=== PATIENT | male | born 1995 | race Hispanic/Latino ===

== ENCOUNTER 2021-03-31 13:15 | Emergency (ER) | payer OTHER, SELFPAY ==
[2021-03-31 13:45] VITALS: BP 136/87; PULSE 79; RESP 22; TEMP 36.6; O2SAT 99; BMI 27.8
[2021-03-31 14:22] LABS: COVID19 -Nasal RAPID POSITIVE (Negative)
--- NOTE | 2021-03-31 15:18 | ED.URI ---
HPI - URI/Sore Throat General Chief Complaint: Upper Respiratory Symptoms Stated Complaint: Congestion, cough, headache Time Seen by Provider: 03/31/21 15:15 Source: patient Mode of arrival: Ambulatory Related Data Allergies Allergy/AdvReac Type Severity Reaction Status Date / Time No Known Drug Allergies Allergy Verified 03/31/21 13:45 Patient History Social History Smoking Status: Current every day smoker Smoking Status: Current every day smoker tobacco type: vaping alcohol intake frequency: a few times a month Substance Use Type: does not use Exam Initial Vital Signs Initial Vital Signs: Vital Signs Temperature 97.8 F 03/31/21 13:45 Pulse Rate 79 03/31/21 13:45 Respiratory Rate 22 03/31/21 13:45 Blood Pressure 136/87 03/31/21 13:45 Pulse Oximetry 99 03/31/21 13:45 Course Orders Ordered: ED Orders 03/31/21 14:03 COVID19 -Nasal swab/Pre-Proc Stat Vital Signs Vital signs: Vital Signs - 8 hr 03/31/21 13:45 Temperature 97.8 F Pulse Rate 79 Respiratory Rate 22 Blood Pressure 136/87 Pulse Oximetry 99 MDM - URI/Sore Throat Lab Data Labs: Lab Results 03/31/21 Range/Units 14:03 SARS-CoV-2 (PCR) Positive H (Negative) Discharge Plan Departure Patient Disposition: Home Clinical Impression: COVID-19 Instructions: DI for COVID-19 (Suspected or Confirmed ) Activity Restrictions/Additional Instructions: *You have been diagnosed with COVID-19, your COVID test was positive today. According to the new CDC guidelines, please quarantine for as long as you have symptoms or 5 days from the onset of symptoms whichever is longest. Please return to the emergency department if you have any worsening of your symptoms, shortness of breath, difficulty breathing, or respiratory distress. *What to do: *Please continue to take your regular medications as directed. [ ] New medication prescriptions sent to your pharmacy: [ ] [ ] New medication written as a paper prescription [ x] No new medications given *Please follow up with your primary care provider in 2-3 days, call for an appointment. Let them know you were seen in the Emergency Department and that we ask that you be seen in follow up. We will electronically transmit a record of today's note if your PCP is in our system *If you do not have a primary care provider please contact the [facility] Resource line at [phone]. They will ask some questions about your medical history and help get you set up with a doctor in the community. *Return to Emergency Department if you should have any new, worsening or concerning symptoms, such as [fever greater than 101F, chills, worsening pain, persistent vomiting or other bothersome symptoms]
--- NOTE | 2021-03-31 15:47 | ED_ITS ---
HPI - URI/Sore Throat <AMERICO Crowell - Last Filed: 03/31/21 15:54> General Chief Complaint: Upper Respiratory Symptoms Stated Complaint: Congestion, cough, headache Time Seen by Provider: 03/31/21 15:15 Source: patient Mode of arrival: Ambulatory History of Present Illness HPI Narrative: 25-year-old male presents to the emergency department after his tested positive for COVID on 03/20/2021 and he developed symptoms shortly afterwards and assumed he also had COVID-19. He is to go back to work tomorrow and came to the emergency department for COVID testing. Patient reports that for 3 days he has had a headache and sore throat but denies having a cough, shortness of breath, muscle aches, nausea, vomiting, or diarrhea. Patient is acting needed for COVID and has received his booster vaccination. Patient denies having any fever, wheezing, or difficulty breathing. Related Data Allergies Allergy/AdvReac Type Severity Reaction Status Date / Time No Known Drug Allergies Allergy Verified 03/31/21 13:45 Review of Systems <AMERICO Crowell - Last Filed: 03/31/21 15:54> Review of Systems Narrative: General: denies fever, chills Head/Neck: denies headache, neck pain, endorses sore throat Eyes: denies visual changes, eye pain Cardio: denies chest pain, palpitations Respiratory: denies shortness of breath, cough GI: denies abdominal pain, nausea, vomiting, or diarrhea : denies dysuria, hematuria MSK: denies joint pain, muscle weakness Skin: denies rash, itching Neuro: denies numbness, tingling, endorses mild headache Patient History <AMERICO Crowell - Last Filed: 03/31/21 15:54> Social History Smoking Status: Current every day smoker Smoking Status: Current every day smoker tobacco type: vaping alcohol intake frequency: a few times a month Substance Use Type: does not use Exam <AMERICO Crowell - Last Filed: 03/31/21 15:54> Narrative Exam Narrative: Independently reviewed vitals signs and nursing notes. General: Awake, alert, nontoxic, no cardiorespiratory distress Head/Neck: Atraumatic, neck full range of motion Eyes: EOMI, conjunctiva normal Nose: nares patent, no rhinorrhea Mouth/Throat: moist mucus membranes, posterior pharynx normal, no oral lesions Cardio: Regular rate and rhythm, no peripheral edema Respiratory: respirations unlabored without wheezing, stridor, or rales. No retractions. GI: Abdomen soft, nontender MSK: Moves all extremities, neurovascularly intact Skin: Normal capillary refill, no rash Neuro: Normal speech and cognition, normal gait Initial Vital Signs Initial Vital Signs: Vital Signs Temperature 97.8 F 03/31/21 13:45 Pulse Rate 79 03/31/21 13:45 Respiratory Rate 22 03/31/21 13:45 Blood Pressure 136/87 03/31/21 13:45 Pulse Oximetry 99 03/31/21 13:45 <Lisa Gan DO - Last Filed: 03/31/21 19:05> Initial Vital Signs Initial Vital Signs: Vital Signs Temperature 97.8 F 03/31/21 13:45 Pulse Rate 79 03/31/21 13:45 Respiratory Rate 22 03/31/21 13:45 Blood Pressure 136/87 03/31/21 13:45 Pulse Oximetry 99 03/31/21 13:45 Course <AMERICO Crowell - Last Filed: 03/31/21 15:54> Orders Ordered: ED Orders 03/31/21 14:03 COVID19 -Nasal swab/Pre-Proc Stat Vital Signs Vital signs: Vital Signs - 8 hr 03/31/21 13:45 Temperature 97.8 F Pulse Rate 79 Respiratory Rate 22 Blood Pressure 136/87 Pulse Oximetry 99 <Lisa Gan DO - Last Filed: 03/31/21 19:05> Orders Ordered: ED Orders 03/31/21 14:03 COVID19 -Nasal swab/Pre-Proc Stat Vital Signs Vital signs: Vital Signs - 8 hr 03/31/21 13:45 Temperature 97.8 F Pulse Rate 79 Respiratory Rate 22 Blood Pressure 136/87 Pulse Oximetry 99 MDM - URI/Sore Throat <AMERICO Crowell - Last Filed: 03/31/21 15:54> Lab Data Labs: Lab Results 03/31/21 Range/Units 14:03 SARS-CoV-2 (PCR) Positive H (Negative) MDM Narrative Medical decision making narrative: 25-year-old male presents emergency department for COVID testing after his tested positive on 03/20/2021, and required to get testing before going back to work. His COVID test today was positive, he has had 3 days of symptoms which include headache and sore throat. He understands this information and, per CDC guidelines, we will abstain from work until he is symptom-free. His breath sounds are clear, he does not have any hypoxia, he does not have any shortness of breath or difficulty breathing. He vaccinated for COVID and boosted however tested positive today. Patient is appropriate and amenable to discharge home. Vital signs are stable on repeat examination is unremarkable. Patient has been informed of results. Patient has been given strict return to ER precautions for any new or worsening symptoms. Patient understands to follow up closely with outpatient providers as instructed. Patient understands plan and agrees to discharge home. All questions and concerns answered at this time. <Lisa Gan, DO - Last Filed: 03/31/21 19:05> Lab Data Labs: Lab Results 03/31/21 Range/Units 14:03 SARS-CoV-2 (PCR) Positive H (Negative) Discharge Plan Departure Patient Disposition: Home Clinical Impression: COVID-19 Instructions: DI for COVID-19 (Suspected or Confirmed ) Activity Restrictions/Additional Instructions: *You have been diagnosed with COVID-19, your COVID test was positive today. According to the new CDC guidelines, please quarantine for as long as you have symptoms or 5 days from the onset of symptoms whichever is longest. Please return to the emergency department if you have any worsening of your symptoms, shortness of breath, difficulty breathing, or respiratory distress. *What to do: *Please continue to take your regular medications as directed. [ ] New medication prescriptions sent to your pharmacy: [ ] [ ] New medication written as a paper prescription [ x] No new medications given *Please follow up with your primary care provider in 2-3 days, call for an appointment. Let them know you were seen in the Emergency Department and that we ask that you be seen in follow up. We will electronically transmit a record of today's note if your PCP is in our system *If you do not have a primary care provider please contact the [facility] Resource line at [phone]. They will ask some questions about your medical history and help get you set up with a doctor in the community. *Return to Emergency Department if you should have any new, worsening or concerning symptoms, such as [fever greater than 101F, chills, worsening pain, persistent vomiting or other bothersome symptoms] <Lisa Gan, DO - Last Filed: 03/31/21 19:05> Cosign ED Attending Guillermina Attestation: I was immediately available in the department for consultation. Documentation has been reviewed. I agree with assessment and plan.
== END 2021-03-31 15:48 | disposition home or self-care (01) ==
PROVIDERS: Emergency Medicine; Emergency Provider Nurse Practitioner Critical Care Medicine
DX: U07.1 COVID-19 (principal); F17.290 Nicotine dependence, other tobacco product, uncomplicated
CPT/HCPCS: 87635; 99281; C9803